=== PATIENT | male | born 1975 | race Caucasian/White ===

== ENCOUNTER 2023-01-09 14:36 | Emergency (ER) | payer BC, SELFPAY ==
[2023-01-09 14:43] VITALS: BP 146/81; PULSE 96; RESP 18; TEMP 35.8; O2SAT 100; BMI 41.6
[2023-01-09 16:46] VITALS: BP 130/88; RESP 20
[2023-01-09 17:00] VITALS: BP 132/83; PULSE 84; RESP 20
--- NOTE | 2023-01-09 17:05 | CRLHL7_ITS ---
For Patients: As a result of the Century Cures Act, medical imaging exams and procedure reports are released immediately into your electronic medical record. You may view this report before your referring provider. If you have questions, please contact your health care provider. INDICATION: [id number] TECHNIQUE: Two view chest. FINDINGS: The lungs are clear. The heart, mediastinum and pulmonary vessels are of normal size. There is no evidence of pleural disease. Low lung volumes. IMPRESSION: Negative chest. Dictated by Azucena Baer MD @ 01/09/2023 6:40:28 PM (Electronically Signed)
--- NOTE | 2023-01-09 17:07 | ED.GENADULT ---
HPI - General Adult General Chief complaint: Chest Pain Stated complaint: chest pain Time Seen by Provider: 01/09/23 16:55 Source: patient Mode of arrival: ambulatory Limitations: no limitations History of Present Illness HPI narrative: 47-year-old male presenting today ray with chest pain. The pain is located on the upper left chest just distal to the shoulder. It is constant and has been present for 3 days. Nothing seems to make it better certain movements seem to make it worse. He did have an episode about 5 days ago where he felt chills and diaphoretic, has not had that sensation since. He denies a headache. He denies any trauma to the left shoulder left chest wall. Has no pain in the shoulder. The pain does not change with eating. This pain does not change with physical activity, it is present day and night. Past medical history significant for obesity, diabetes here. Just over 1 week ago patient was in a 4 hour car ride where he went deer hunting, he does shoot a gun but on the right side. Related Data Home Medications Medication Instructions Recorded Confirmed metformin 500 mg tablet 1,000 mg PO BID 01/09/23 01/09/23 semaglutide 0.25 mg or 0.5 mg (2 mg subcut 01/09/23 mg/3 mL) subcutaneous pen injector (Ozempic) Previous Rx's Medication Instructions Recorded fluconazole 200 mg tablet 200 mg PO QDAY #7 tabs 06/26/22 (Diflucan) Allergies Allergy/AdvReac Type Severity Reaction Status Date / Time No Known Drug Allergies Allergy Verified 06/26/22 10:37 Review of Systems Status of ROS: Reports: 10 or more systems reviewed and unremarkable except as noted in History and below [facility] Medical History Yeast infection ?B37.9 - Candidiasis, unspecified (ICD-10) Social History Smoking Status: Former smoker Exam Narrative: Exam Narrative: Obese, well-developed patient in no acute distress. Alert and oriented. Answers questions appropriately. Mood and affect are appropriate. Thoughts are goal oriented and rational. No tangential or magical thinking noted. Patient speaks in full sentences without needing to catch their breath. HEENT: Normocephalic atraumatic. Pupils are equally round reactive to light. Extraocular muscles are intact. Conjunctivae are moist without any icterus noted. Moist mucous membranes. Posterior pharynx is normal. Neck is soft without any lymphadenopathy or thyromegaly. No masses are appreciated. Cardiovascular: Heart is regular rate and rhythm S1 and S2 are present without any murmurs. Lungs: Clear to auscultation bilaterally no wheezes rhonchi or rales are appreciated. Patient takes deep breaths without any discomfort. I cannot reproduce his pain. Abdomen: Soft and nontender nondistended with normal bowel sounds. No guarding or rebound. No masses or organomegaly appreciated. Extremities: Bilateral lower extremities are without edema. Normal DP and PT pulses. Skin: Well perfused without any obvious rashes. Const: Vital Signs, click to edit/add: Vital Signs - 24 hr 01/09/23 14:43 01/09/23 16:46 01/09/23 17:00 Temperature 96.5 F L Pulse Rate Pulse Rate [Pulse Oximeter] 96 84 Respiratory Rate 18 20 20 Blood Pressure [Ri ght Upper Arm] 146/81 H 130/88 132/83 Pulse Oximetry 100 Oxygen Delivery Me thod Room Air 01/09/23 17:25 01/09/23 17:41 Temperature Pulse Rate 82 83 Pulse Rate [Pulse Oximeter] Respiratory Rate Blood Pressure [Ri ght Upper Arm] Pulse Oximetry 96 97 Oxygen Delivery Me thod Course Course ED Course: EKG, read by me, shows normal sinus rhythm with a pulse of 92. CBC is unremarkable. Chemistries are unremarkable. D-dimer is negative. Troponin within normal limits. Chest x-ray, read by me, does not show any acute pathology. Vital Signs Vital signs: Initial Vital Signs Temperature 96.5 F L 01/09/23 14:43 Temperature Source Temporal Artery Scan 01/09/23 14:43 Pulse Rate 96 01/09/23 14:43 Respiratory Rate 18 01/09/23 14:43 Blood Pressure 146/81 H 01/09/23 14:43 Blood Pressure Mean 102 01/09/23 14:43 Blood Pressure Position Sitting 01/09/23 14:43 Pulse Oximetry 100 01/09/23 14:43 Oxygen Delivery Method Room Air 01/09/23 14:43 Vital Signs Temperature 96.5 F L 01/09/23 14:43 Pulse Rate 96 01/09/23 14:43 Respiratory Rate 18 01/09/23 14:43 Blood Pressure 146/81 H 01/09/23 14:43 Pulse Oximetry 100 01/09/23 14:43 Oxygen Delivery Method Room Air 01/09/23 14:43 Temperature 96.5 F L 01/09/23 14:43 Pulse Rate 83 01/09/23 17:41 Respiratory Rate 20 01/09/23 17:00 Blood Pressure 132/83 01/09/23 17:00 Pulse Oximetry 97 01/09/23 17:41 Oxygen Delivery Method Room Air 01/09/23 14:43 Medical Decision Making MDM Narrative Medical decision making narrative: 47-year-old male with left-sided chest pain. I do believe his pain at this time is likely musculoskeletal in nature. I recommend heat to the sore area, activity modification. If pain worsens I certainly recommend he return to the ER. Lab Data Lab results reviewed: Yes I reviewed the patient's lab results Labs: Lab Results 01/09/23 Range/Units 17:42 WBC 8.70 (4.50-11.00) K/uL RBC 5.38 (4.30-5.90) m/uL Hgb 14.3 (13.5-17.5) gm/dL Hct 43.1 (37.0-53.0) % MCV 80 (80-100) fL MCH 27 (26-34) pg MCHC 33 (32-36) gm/dL RDW Coeff of Coy 13.6 (11.5-15.5) % Plt Count 202 (140-440) K/uL Neut % (Auto) 58.0 (42.0-72.0) % Lymph % (Auto) 34.1 (20-44) % [place] % (Auto) 6.0 (0.0-11.0) % Eos % (Auto) 1.6 (0.0-7.0) % Baso % (Auto) 0.2 (0.0-3.0) % Neut # (Auto) 5.04 (1.7-7.0) K/uL Lymph # (Auto) 2.97 H (0.90-2.90) K/uL [place] # (Auto) 0.50 (0.00-0.90) K/UL Eos # (Auto) 0.14 (0.00-0.50) K/uL Baso # (Auto) 0.02 (0.00-0.30) K/uL Abs Immat Gran (auto) 0.01 (0.00-0.30) K/uL Imm/Tot Granulo (auto) 0.1 % D-Dimer Quant (PE/DVT) < 0.27 (0.00-0.50) ug/ml Sodium 139 (135-149) mmol/L Potassium 3.8 (3.6-5.1) mmol/L Chloride 101 (96-114) mmol/L Carbon Dioxide 23 (20-32) mmol/L Anion Gap 15 (7-15) mEq/L BUN 14 (5-24) mg/dL Creatinine 0.7 (0.5-1.5) mg/dL Estimated Creat Clear 137.60 Estimated GFR 116 ml/min Glucose 109 (60-115) mg/dL Calcium 9.2 (8.4-10.6) mg/dL Total Bilirubin 0.7 (0.1-1.5) mg/dL Direct Bilirubin 0.0 (0.0-0.5) mg/dL AST 39 H (12-35) U/L ALT 57 H (4-50) U/L Alkaline Phosphatase 87 (40-150) U/L Troponin I < 0.01 L (0.01-0.04) ng/mL C-Reactive Protein 1.5 H (0.5-1.0) mg/dL Total Protein 7.4 (6.0-8.3) g/dL Albumin 4.5 (3.3-5.0) g/dL Imaging Data Chest x-ray: Attestation: I have reviewed the pertinent imaging results. Radiologist's impression: TECHNIQUE: Two view chest. FINDINGS: The lungs are clear. The heart, mediastinum and pulmonary vessels are of normal size. There is no evidence of pleural disease. Low lung volumes. IMPRESSION: Negative chest. ECG Data Attestation: I personally reviewed and interpreted this ECG as follows: Discharge Plan Discharge Clinical Impression: Atypical chest pain Patient Disposition: Home, Self-Care Condition: Stable Additional Instructions: Your workup was unremarkable today. I do believe your pain is likely due to musculoskeletal discomfort. I recommend taking ibuprofen or Tylenol as needed/as directed. Apply heat to the sore area a few times per day, do not apply heat directly to skin. If you are not getting better in the next week I do recommend you follow-up with your primary care provider. If your pain gets acutely worse, return to the ER. Prescriptions: No Action fluconazole [Diflucan] 200 mg tablet 200 mg PO QDAY Qty: 7 0RF metformin 500 mg tablet 1,000 mg PO BID Ozempic 0.25 mg or 0.5 mg (2 mg/3 mL) pen injector subcut Follow Up/Referrals: Gregory Ellis MD [Primary Care Provider] - Stand Alone Forms: [employer] Info Instructions
[2023-01-09 17:25] VITALS: PULSE 82; O2SAT 96
[2023-01-09 17:41] VITALS: PULSE 83; O2SAT 97
[2023-01-09 17:49] LABS: Basophils Absolute Auto 0.02 K/uL (0.00-0.30); Basophils Percent Auto 0.2 % (0.0-3.0); Eosinophils Absolute Auto 0.14 K/uL (0.00-0.50); Eosinophils Percent Auto 1.6 % (0.0-7.0); Hematocrit 43.1 % (37.0-53.0); Hemoglobin* 14.3 gm/dL (13.5-17.5); Immature Granulocytes Abs Auto 0.01 K/uL (0.00-0.30); Immature Granulocytes Pct Auto 0.1 %; Lymphocytes Absolute Auto 2.97 K/uL (0.90-2.90); Lymphocytes Percent Auto 34.1 % (20-44); Mean Corpuscular HGB Conc 33 gm/dL (32-36); Mean Corpuscular Hemoglobin 27 pg (26-34); Mean Corpuscular Volume 80 fL (80-100); Neutrophils Absolute Auto 5.04 K/uL (1.7-7.0); Platelet Count* 202 K/uL (140-440); RDW Coefficient of Variation % 13.6 % (11.5-15.5); Red Blood Count 5.38 m/uL (4.30-5.90)
[2023-01-09 17:53] LABS: Slide Review Reflex No
[2023-01-09 18:02] LABS: Chloride* 101 mmol/L (96-114); Sodium* 139 mmol/L (135-149)
[2023-01-09 18:03] LABS: Albumin* 4.5 g/dL (3.3-5.0); Potassium* 3.8 mmol/L (3.6-5.1)
[2023-01-09 18:06] LABS: Alanine Aminotransferase* 57 U/L (4-50); Alkaline Phosphatase* 87 U/L (40-150); Anion Gap 15 mEq/L (7-15); Aspartate Amino Transferase* 39 U/L (12-35); Bilirubin Total* 0.7 mg/dL (0.1-1.5); Blood Urea Nitrogen* 14 mg/dL (5-24); Carbon Dioxide* 23 mmol/L (20-32); Creatinine* 0.7 mg/dL (0.5-1.5); Estimated Glomerular Filt Rate 116 ml/min; Glucose* 109 mg/dL (60-115); Total Protein* 7.4 g/dL (6.0-8.3)
[2023-01-09 18:07] LABS: Calcium* 9.2 mg/dL (8.4-10.6)
[2023-01-09 18:09] LABS: C Reactive Protein* 1.5 mg/dL (0.5-1.0)
[2023-01-09 18:18] LABS: Troponin I* < 0.01 ng/mL (0.01-0.04)
[2023-01-09 18:26] LABS: D Dimer Quantitative* < 0.27 ug/ml (0.00-0.50)
== END 2023-01-09 18:57 | disposition home or self-care (01) ==
PROVIDERS: Emergency Provider Family Medicine; PCP Family Medicine
DX: R07.89 Other chest pain (principal)
CPT/HCPCS: 36415; 71046; 80048; 80076; 84484; 85025; 85379; 86140; 93005; 99284; 99285